=== PATIENT | female | born 1985 | race Caucasian/White ===

== ENCOUNTER 2019-01-24 17:16 | Emergency (ER) | payer OTHER ==
--- NOTE | 2019-01-24 17:25 | EDPHY ---
H & P Source: Patient Time Seen by Provider: 01/24/19 17:24 HPI/ROS: HPI CHIEF COMPLAINT: Abdominal Pain. RLQ. HISTORY OF PRESENT ILLNESS: 33-year-old female otherwise healthy without any significant medical history does not take any daily medications presents emergency room with right lower quadrant abdominal pain. This is been ongoing for 2-3 days however getting worse. It is worse when she walks. She gets discomfort in the right lower quadrant. Dull ache. Nonradiating. She denies any urinary symptoms, denies flank pain, denies fever, denies vomiting, denies being . Denies lower pelvic pain. Past Medical History: Denies significant medical history Past Surgical History: Breast augmentation Social History: Occasional alcohol use. Denies drugs or tobacco. Family History: Noncontributory ROS REVIEW OF SYSTEMS: 10 Systems were reviewed and negative with the exception of the elements mentioned in the history of present illness. Exam Constitutional triage nursing summary reviewed, vital signs reviewed, awake/ alert. Eyes normal conjunctivae and sclera, EOMI, PERRLA. HENT normal inspection, atraumatic, moist mucus membranes, no epistaxis, neck supple/ no meningismus, no raccoon eyes. Respiratory clear to auscultation bilaterally, normal breath sounds, no respiratory distress, no wheezing. Cardiovascular rate normal, regular rhythm, no murmur, no edema, distal pulses normal. Gastrointestinal mild tender palpation right lower quadrant, no rebound, no guarding, normal bowel sounds, no distension, no pulsatile mass. Genitourinary no CVA tenderness. Musculoskeletal no midline vertebral tenderness, full range of motion, no calf swelling, no tenderness of extremities, no meningismus, good pulses, neurovascularly intact. Skin pink, warm, & dry, no rash, skin atraumatic. Neurologic awake, alert and oriented x 3, AAOx3, moves all 4 extremities equally, motor intact, sensory intact, CN II-XII intact, normal cerebellar, normal vision, normal speech. Psychiatric normal mood/affect. Heme/Lymph/Immune no lymphadenopathy. Differential Diagnosis: Differential diagnosis includes but is not limited to and in no particular order: Bowel obstruction, appendicitis, gallbladder disease, diverticulitis, colitis, enteritis, perforated viscus, gastritis, GERD , esophagitis, urinary tract infection, pyelonephritis, kidney stones Medical Decision Making: Plan for this patient IV establishment IV fluid bolus , basic labs, urinalysis, urine test, ultrasound rule out acute appendicitis. Re-evaluation: Labs reviewed, normal CBC Normal chemistry Negative Negative urinalysis. 1814 patient getting ultrasound rule out appendicitis given right lower quadrant abdominal pain. Ultrasound performed however unable to visualize appendix. Called to me by Dr. Stuart. Discussed patient's ultrasound with her. Does not visualize the appendix. The patient has ongoing right lower quadrant abdominal pain Long discussion with the patient recommend going to [facility] for CT imaging. 1835 I discussed the case with LIZ Solis at [facility], who is accepted patient in transfer. Plan will be for the patient go to [facility] Emergency room for CT imaging. Unable to provide CT imaging here at [facility] emergency room as the CT scanner is unfortunately not working at this time is not expected to be working until tomorrow night. Patient agrees for transfer over to [facility] emergency room for further evaluation and CT imaging. Patient agrees to go to ER, direct by private vehicle, as she did not get any medications here. She understands not to eat/drink anything. She understands to go directly to , IV will be left in place. Patient agrees for this. (Ramy Pina) Constitutional: Initial Vital Signs Temperature (C) 37.0 C 01/24/19 17:30 Heart Rate 62 01/24/19 17:30 Respiratory Rate 18 01/24/19 17:30 Blood Pressure 94/69 L 01/24/19 17:30 O2 Sat (%) 98 01/24/19 17:30 O2 Delivery Mode Room Air Allergies/Adverse Reactions: No Known Allergies Allergy (Unverified 01/24/19 17:40) Home Medications: Medication Instructions Recorded NK [No Known Home Meds] 01/24/19 - Diagnostics Imaging Results: Imaging Impressions Abdomen Ultrasound 01/24/19 17:39 Impression: Appendix not identified. Findings discussed with Emergency Department physician, Ramy Pina MD, on 01/24/2019, 18:24. - Data Points Laboratory Results: 01/24/19 17:57 POC Sodium 141 mEq/L mEq/L (135-145) POC Potassium 3.9 mEq/L mEq/L (3.3-5.0) POC Chloride 102.0 mEq/L mEq/L (97-110) POC Total CO2 28 mEq/L mEq/L (22-31) POC BUN 13 mg/dL mg/dL (7-23) POC Creatinine 0.6 mg/dL mg/dL (0.6-1.0) POC Glucose 95 mg/dL mg/dL (70-100) POC Calcium 9.0 mg/dL mg/dL (8.5-10.4) Medications Given: Discontinued Medications Sodium Chloride (Ns) 1,000 mls @ 0 mls/hr IV EDNOW ONE; Wide Open PRN Reason: Protocol Stop: 01/24/19 17:40 Last Admin: 01/24/19 18:18 Dose: 1,000 mls Point of Care Test Results: CBC CBC Collection Date 01/24/19 CBC Collection Time 17:50 WBC 5.71 RBC 4.59 HGB 14.0 HCT 42.5 PLT 229 Neut # 3.06 Neut 53.5 LYMPH # 2.03 LYMPH 35.6 MCV 92.6 Chemistry 01/24/19 17:57 POC Sodium 141 mEq/L mEq/L (135-145) POC Potassium 3.9 mEq/L mEq/L (3.3-5.0) POC Chloride 102.0 mEq/L mEq/L (97-110) POC Total CO2 28 mEq/L mEq/L (22-31) POC BUN 13 mg/dL mg/dL (7-23) POC Creatinine 0.6 mg/dL mg/dL (0.6-1.0) POC Glucose 95 mg/dL mg/dL (70-100) POC Calcium 9.0 mg/dL mg/dL (8.5-10.4) Urine Collection Date 01/24/19 Collection Time 17:55 HCG Results Negative Urine Dip Collection Date 01/24/19 Collection Time 17:55 Specific [place] (1.002-1.030) 1.010 PH (5.0-7.5) 7.0 Leukocytes (Negative) Negative Nitrites (Negative) Negative Protein (Negative) Negative Glucose (Negative) Negative Ketones (Negative) Negative Urobilnogen (0.2-1.0 EU) 0.2 Bilirubin (Negative) Negative Blood (Negative) Negative Departure - Departure Disposition: [facility] ER Clinical Impression: Abdominal pain Condition: Fair Additional Instructions: 1 Go Directly to [facility] ER for further eval. 2. You need a CT scan, go directly there for evaluation. 3. Do not eat/drink 4. Your IV has been left in place. Referrals: NONE *PRIMARY CARE P,. [Primary Care Provider] - As per Instructions
[2019-01-24] MEDS ORDERED: NS 1,000 ML IV ONE (17:39)
[2019-01-24] MEDS ORDERED: IOPAMIDOL (ISOVUE-300) 100 ML BTL ONE (20:14)
--- NOTE | 2019-01-24 21:42 | EDPHY ---
H & P Time Seen by Provider: 01/24/19 17:24 HPI/ROS: HPI Right lower quadrant abdominal pain. 33-year-old female by private vehicle from the [facility] Emergency Department where she was evaluated for right lower quadrant pain. She was sent here for a CT scan of the abdomen and pelvis contrast enhanced to evaluate for possible appendicitis. The CT scanner at [facility] is currently not operation all. Please see note per Dr. Ramy Pina for further details. ROS: Constitutional: No fever, no chills. No weakness. Eyes: No discharge. No changes in vision. ENT: No sore throat. No nasal congestion or rhinorrhea. Respiratory: No cough. No shortness of breath. Cardiac: No chest pain, no palpitations. Gastrointestinal: As above, no vomiting, no diarrhea. Genitourinary: No hematuria. No dysuria or increased frequency with urination. Musculoskeletal: No back pain. No neck pain. No myalgias or arthralgias. Skin: No rashes. Neurological: No headache. No focal weakness or altered sensation. Past medical history: Breast augmentation. Social history: Nonsmoker. No alcohol. Here by herself. Physical Exam: General Appearance: Alert, no distress. This patient is responding to questions appropriately and in full sentences. This patient appears well- hydrated and well-nourished. Eyes: Pupils equal and round no pallor or injection. No lid edema, erythema or injection. Gastrointestinal: Abdomen is soft with mild and vague right lower quadrant tenderness on palpation, no masses, bowel sounds normal. No focal tenderness at McBurney's point. No Goodman sign. Neurological: Motor sensory function is grossly intact. Cranial nerves are normal. Gait is normal. Skin: Warm and dry, no rashes. Musculoskeletal: Neck is supple and nontender. No CVA tenderness on palpation bilaterally. Extremities are symmetrical. All joints range without pain or impingement. Psychiatric: No agitation. No depression. Database: EKG: Imaging: CT scan abdomen pelvis with IV contrast: The appendix is well visualized and is normal. Hemorrhagic right ovarian follicle noted. CT otherwise unremarkable. Results were discussed with staff radiologist Dr. Fabian Stuart. Procedures: Emergency department course: Vital signs reviewed and are normal. Patient afebrile. After my initial evaluation she was sent for a contrast enhanced CT scan of the abdomen and pelvis. 9:20 p.m., patient re-evaluated, resting comfortably at this time. She does not appear to be in any distress. Repeat abdominal exam she is soft with very mild and vague right lower quadrant tenderness on palpation. No CVA tenderness on palpation bilaterally. Results of her CT scan, blood work and urinalysis discussed with her. She feels comfortable going home at this time and I feel she is safe for discharge. Return to emergency department precautions reviewed with her thoroughly. All of her questions were answered. She is discharged from the emergency department in good condition. Differential Diagnosis: The differential diagnosis on this patient includes but is not limited to ovarian cyst, constipation. Appendicitis, ovarian torsion, urinary tract infection, ureterolithiasis, ectopic unlikely. This represents a partial list of diagnoses considered. These considerations are based on history , physical exam, past history, reassessment and diagnostic testing. Smoking Status: Former smoker Constitutional: Initial Vital Signs Temperature (C) 37.0 C 01/24/19 17:30 Heart Rate 62 01/24/19 17:30 Respiratory Rate 18 01/24/19 17:30 Blood Pressure 94/69 L 01/24/19 17:30 O2 Sat (%) 98 01/24/19 17:30 O2 Delivery Mode Room Air Allergies/Adverse Reactions: No Known Allergies Allergy (Unverified 01/24/19 17:40) Home Medications: Medication Instructions Recorded NK [No Known Home Meds] 01/24/19 Medical Decision Making - Diagnostics Imaging Results: Imaging Impressions Abdomen Ultrasound 01/24/19 17:39 Impression: Appendix not identified. Findings discussed with Emergency Department physician, Ramy Pina MD, on 01/24/2019, 18:24. Abdomen CT 01/24/19 20:11 Impression: 1. Normal appendix. Moderate constipation. 2. Hemorrhagic right ovarian follicle, with small free fluid in the low pelvis. 3. Normal solid organs. Findings discussed with Emergency Department physician, Marta Aguiar M.D., on January 24, 2019 at 2042. - Data Points Laboratory Results: 01/24/19 17:57 POC Sodium 141 mEq/L mEq/L (135-145) POC Potassium 3.9 mEq/L mEq/L (3.3-5.0) POC Chloride 102.0 mEq/L mEq/L (97-110) POC Total CO2 28 mEq/L mEq/L (22-31) POC BUN 13 mg/dL mg/dL (7-23) POC Creatinine 0.6 mg/dL mg/dL (0.6-1.0) POC Glucose 95 mg/dL mg/dL (70-100) POC Calcium 9.0 mg/dL mg/dL (8.5-10.4) Medications Given: Discontinued Medications Sodium Chloride (Ns) 1,000 mls @ 0 mls/hr IV EDNOW ONE; Wide Open PRN Reason: Protocol Stop: 01/24/19 17:40 Last Admin: 01/24/19 18:18 Dose: 1,000 mls Point of Care Test Results: CBC CBC Collection Date 01/24/19 CBC Collection Time 17:50 WBC 5.71 RBC 4.59 HGB 14.0 HCT 42.5 PLT 229 Neut # 3.06 Neut 53.5 LYMPH # 2.03 LYMPH 35.6 MCV 92.6 Chemistry 01/24/19 17:57 POC Sodium 141 mEq/L mEq/L (135-145) POC Potassium 3.9 mEq/L mEq/L (3.3-5.0) POC Chloride 102.0 mEq/L mEq/L (97-110) POC Total CO2 28 mEq/L mEq/L (22-31) POC BUN 13 mg/dL mg/dL (7-23) POC Creatinine 0.6 mg/dL mg/dL (0.6-1.0) POC Glucose 95 mg/dL mg/dL (70-100) POC Calcium 9.0 mg/dL mg/dL (8.5-10.4) Urine Collection Date 01/24/19 Collection Time 17:55 HCG Results Negative Urine Dip Collection Date 01/24/19 Collection Time 17:55 Specific [place] (1.002-1.030) 1.010 PH (5.0-7.5) 7.0 Leukocytes (Negative) Negative Nitrites (Negative) Negative Protein (Negative) Negative Glucose (Negative) Negative Ketones (Negative) Negative Urobilnogen (0.2-1.0 EU) 0.2 Bilirubin (Negative) Negative Blood (Negative) Negative Departure - Departure Disposition: Home, Routine, Self-Care Clinical Impression: Abdominal pain, Ovarian cyst Condition: Good Instructions: Abdominal Pain (ED), Ovarian Cyst (ED) Additional Instructions: Read and follow provided instructions. Follow-up with your primary care physician in 1-2 days for re-evaluation. Ibuprofen dosin mg every 6 hours with meals for the next 3 days only. Take only as needed for pain. Return to the emergency department for worsening abdominal pain, fever, vomiting or other serious concerns. Referrals: NONE *PRIMARY CARE P,. [Primary Care Provider] - As per Instructions
[2019-01-24 21:55] VITALS: BP 105/67
== END 2019-01-24 21:45 | disposition home or self-care (01) ==
LOC: CED 17:16
DX: N83.201 Unspecified ovarian cyst, right side (principal); K59.00 Constipation, unspecified; Z87.891 Personal history of nicotine dependence
CPT/HCPCS: 76705-PO; 80048-ER; 81025-ER; 85025-QW-ER; Q9967